=== PATIENT | female | born 1945 | race Hispanic/Latino ===

== ENCOUNTER 2017-06-15 08:46 | Outpatient (CLI) | payer MEDICARE, BC | END 2017-06-15 08:47 | disposition home or self-care (01) | LOC: BICMAMMO 08:46 | PROVIDERS: ATTEND Family Medicine | DX: Z12.31 Encounter for screening mammogram for malignant neoplasm of breast (principal); M81.0 Age-related osteoporosis without current pathological fracture | CPT/HCPCS: 77063; 77067; 77080 ==

== ENCOUNTER 2017-08-01 15:36 | Outpatient (CLI) | payer MEDICARE, BC | END 2017-08-01 15:37 | disposition home or self-care (01) | LOC: BICRAD 15:36 | PROVIDERS: ATTEND Family Medicine | DX: M25.562 Pain in left knee (principal); M25.561 Pain in right knee; M17.12 Unilateral primary osteoarthritis, left knee; M25.861 Other specified joint disorders, right knee ==

== ENCOUNTER 2017-08-20 15:19 | Outpatient (CLI) | payer MEDICARE, BC ==
[~2017-08-20 15:19] MED LIST: Gadobenate Dimeglumine 529 MG/1 ML (20ML VIAL) ONE
== END 2017-08-20 15:20 | disposition home or self-care (01) ==
LOC: BICMRI 15:19
PROVIDERS: ATTEND Orthopaedic Surgery Sports Medicine
DX: M25.561 Pain in right knee (principal); S83.231A Complex tear of medial meniscus, current injury, right knee, initial encounter; M93.961 Osteochondropathy, unspecified, right lower leg
CPT/HCPCS: A9579

== ENCOUNTER 2017-12-18 11:45 | Outpatient (CLI) | payer MEDICARE, BC | END 2017-12-18 11:46 | disposition home or self-care (01) | LOC: BICRAD 11:45 | PROVIDERS: ATTEND Family Medicine | DX: R60.0 Localized edema (principal); R93.8 Abnormal findings on diagnostic imaging of other specified body structures; I51.7 Cardiomegaly; Z92.89 Personal history of other medical treatment | CPT/HCPCS: 71046; 74018 ==

== ENCOUNTER 2018-06-19 11:44 | Outpatient (CLI) | payer MEDICARE, BC ==
--- NOTE | 2018-06-19 13:18 | RAD ---
CHEST TWO VIEWS: HISTORY: J18.9, pneumonia. COMPARISON: 12/18/2017 FINDINGS: Stable appearing mild cardiomegaly with increased linear and interstitial markings bilaterally and mi nimal pleural thickening, evidence for stable chronic change. Extensive atherosclerosis of the aorta with ectasia. No confluent lobar pneumonia. No significant pleural effusion. IMPRESSION: Stable appearing chronic lung changes with stable minimal cardiomegaly and extensive atherosclerotic ectatic changes of the aorta. POS: C
== END 2018-06-19 11:45 | disposition home or self-care (01) ==
LOC: BICRAD 11:44
PROVIDERS: ATTEND Family Medicine
DX: J18.9 Pneumonia, unspecified organism (principal); I51.7 Cardiomegaly; J98.4 Other disorders of lung; I77.810 Thoracic aortic ectasia
CPT/HCPCS: 71046

== ENCOUNTER 2018-06-27 12:53 | Outpatient (CLI) | payer MEDICARE, BC ==
--- NOTE | 2018-06-27 14:42 | BD ---
DEXA Bone Density History: Post-menopausal. Lumbar Spine: BMD (g/cm2) L1 0.820 T-Score: -1.5 L2 0.829 T-Score: -1.8 L3 0.728 T-Score: -3.2 L4 0.793 T-Score: -2.4 L1-L4 0.788 T-Score: -2.4 Femoral Neck: 0.565 T-Score: -2.6 Total Femur: 0.931 T-Score: -0.1 Impression: Osteoporosis of the left femoral neck. Osteopenia of the lumbar spine. POS: [facility]
== END 2018-06-27 12:54 | disposition home or self-care (01) ==
LOC: BICMAMMO 12:53
PROVIDERS: ATTEND Family Medicine
DX: Z12.31 Encounter for screening mammogram for malignant neoplasm of breast (principal); M85.9 Disorder of bone density and structure, unspecified; M81.0 Age-related osteoporosis without current pathological fracture; M85.88 Other specified disorders of bone density and structure, other site
CPT/HCPCS: 77063; 77067; 77080

== ENCOUNTER 2018-07-24 09:11 | Outpatient (CLI) | payer MEDICARE, BC ==
[2018-07-24 10:15] LABS: Estimated GFR-MDRD - POC Greater than 90
[2018-07-24] MEDS ORDERED: Gadobenate Dimeglumine 529 MG/1 ML (20ML VIAL) ONE (10:26)
--- NOTE | 2018-07-24 12:25 | MRI ---
MRI RIGHT KNEE WITH AND WITHOUT CONTRAST: Date: 07/24/18 HISTORY: Mass. COMPARISON: Prior radiograph, as well as MRI knee, dated 08/20/17. FINDINGS: There is a chondroid mass of the distal femoral and medial femoral condyle crossing the physeal plate . This measures 1.4 cm AP x 1.2 cm transverse x a craniocaudad length of 2.5 cm. This has not signifi cantly grown from the comparison examination. There is a cortical breakthrough anteriorly with the co rtical defect measuring 9.0 mm in AP dimension, unchanged from 2018. There is a moderate sized joint effusion which has increased from the comparison examination. The enh ancement of the synovium is markedly increased from the comparison examination. Medial Meniscus: There is a displaced flap tear of the posterior root attachment medial meniscus with the root attachm ent tissue flipped upon the posterior horn. Tear extends into the medial meniscal body with maceratio n of the free edge. Lateral Meniscus: There is a discoid lateral meniscus. ACL and PCL are intact. There is chronic thickening of the MCL. LCL is intact. Extensor Mechanism: Quadriceps tendon, patella, and patellar tendon are intact. Cartilage: Patellofemoral compartment: Multifocal high grade cartilage fissuring of patellar apex. Mild trochle ar dysplasia. Medial compartment; High grade chondromalacia with chondral delamination on the weightbearing surfac e of medial femoral condyle and medial tibial plateau. Reactive marrow changes of the medial femoral condyle and medial tibial plateau. Lateral compartment: Intact. IMPRESSION: 1. Unchanged size of the cartilaginous tumor of the anterior margin of medial femoral condyle crossi ng the physeal scar with anterior cortical breakthrough. 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 2. Marked interval size increase of the effusion of the knee joint. 3. Progressive tearing and maceration of the medial meniscus with loss of hoop stress and subsequent Grade IV chondromalacia. 4. Discoid lateral meniscus. POS: [facility]
== END 2018-07-24 09:12 | disposition home or self-care (01) ==
LOC: BICMRI 09:11
PROVIDERS: ATTEND Orthopaedic Surgery
DX: D16.21 Benign neoplasm of long bones of right lower limb (principal); M25.461 Effusion, right knee; M23.300 Other meniscus derangements, unspecified lateral meniscus, right knee; D49.2 Neoplasm of unspecified behavior of bone, soft tissue, and skin; M94.261 Chondromalacia, right knee
CPT/HCPCS: 82565; A9577

== ENCOUNTER 2018-11-14 14:26 | Outpatient (CLI) | payer MEDICARE, BC ==
--- NOTE | 2018-11-14 15:54 | RAD ---
LEFT FOOT THREE VIEWS: 11/14/18 HISTORY: Left foot pain, heel pain. FINDINGS/IMPRESSION: No fracture, dislocation or bony destruction seen. There are small plantar and posterior calcaneal sp urs. POS: OFF
== END 2018-11-14 14:27 | disposition home or self-care (01) ==
LOC: BICRAD 14:26
PROVIDERS: ATTEND Family Medicine
DX: M79.672 Pain in left foot (principal); M77.32 Calcaneal spur, left foot; M77.52 Other enthesopathy of left foot and ankle

== ENCOUNTER 2019-06-30 08:48 | Outpatient (CLI) | payer MEDICARE, BC ==
--- NOTE | 2019-07-03 13:28 | MMO ---
Bilateral MAMMO Bilat Screen [facility]. CLINICAL HISTORY: Patient is 73 years old and is seen for screening. The patient has no family history of breast cancer. The patient has no personal history of cancer. VIEWS: The views performed were: bilateral craniocaudal with tomosynthesis and bilateral mediolateral oblique with tomosynthesis. FILMS COMPARED: The present examination has been compared to prior imaging studies performed at [facility] on 06/02/2015, 06/05/2016, 06/15/2017 and 06/27/2018. This study has been interpreted with the assistance of computer-aided detection. MAMMOGRAM FINDINGS: There are no suspicious masses, suspicious calcifications, or new areas of architectural distortion. IMPRESSION: THERE IS NO MAMMOGRAPHIC EVIDENCE OF MALIGNANCY. A ROUTINE FOLLOW-UP MAMMOGRAM IN 1 YEAR IS RECOMMENDED. THE RESULTS OF THIS EXAM WERE SENT TO THE PATIENT. ACR BI-RADS Category 1 - Negative MAMMOGRAPHY NOTE: 1. A negative mammogram report should not delay a biopsy if a dominant of clinically suspicious mass is present. 2. Approximately 10% to 15% of breast cancers are not detected by mammography. 3. Adenosis and dense breasts may obscure an underlying neoplasm. Reported by: JUSTINO LOCK MD Electonically Signed: [id number]
== END 2019-06-30 08:49 | disposition home or self-care (01) ==
LOC: BICMAMMO 08:48
PROVIDERS: ATTEND Family Medicine
DX: Z12.31 Encounter for screening mammogram for malignant neoplasm of breast (principal)
CPT/HCPCS: 77063; 77067

== ENCOUNTER 2020-02-05 12:09 | Outpatient (CLI) | payer MEDICARE, BC ==
--- NOTE | 2020-02-05 12:57 | RAD ---
EXAM: Single view of the abdomen HISTORY: Hematuria that is intermittent for a few months COMPARISON: None FINDINGS: Single view of the abdomen shows a nonspecific, nonobstructive bowel gas pattern. No suspi cious calcifications are seen. The bones are unremarkable. IMPRESSION: Unremarkable exam
--- NOTE | 2020-02-05 12:58 | RAD ---
XR Chest Pa Lat STANDARD HISTORY: Cardiomegaly COMPARISON: 06/19/2018 FINDINGS: The heart is enlarged. There is mild pulmonary vascular congestion versus stable chronic ch anges.. No lobar consolidation, pneumothoraces or large effusions are seen. The aorta is tortuous. There are degenerative changes in the spine. IMPRESSION: No radiographic evidence of acute cardiopulmonary process.
--- NOTE | 2020-02-05 13:04 | ULT ---
US Renal Bilateral STANDARD History: Renal mass Comparison: None. Findings: Real-time grayscale and color evaluation of the kidneys and urinary bladder was performed. Right kidney measures 10 x 4.5 x 4.7 cm with a lateral cortical interpolar mass which is approximatel y 50% exophytic measuring 4.1 x 4 x 3.5 cm. This mass is solid without significant cystic component. The left kidney measures 10 x 5.4 x 4.7 cm with multiple punctate calyceal echogenic foci. No signifi cant hydronephrosis. No left-sided renal mass. Urinary bladder is unremarkable. Impression: 1. Large right lateral cortical exophytic interpolar mass measuring up to 4.1 cm in size. Malignancy is the diagnosis of exclusion. 2. Nonobstructing punctate left-sided renal calculi.
== END 2020-02-05 12:10 | disposition home or self-care (01) ==
LOC: BICRAD 12:09
PROVIDERS: ATTEND Family Medicine
DX: N23 Unspecified renal colic (principal); I51.7 Cardiomegaly; R31.9 Hematuria, unspecified; N20.0 Calculus of kidney; N28.89 Other specified disorders of kidney and ureter
CPT/HCPCS: 71046; 74018; 76770

== ENCOUNTER 2020-03-16 12:38 | Outpatient (CLI) | payer MEDICARE, BC ==
[2020-03-16 13:23] LABS: Estimated GFR-MDRD - POC Greater than 90
--- NOTE | 2020-03-16 14:53 | CT ---
CT ABDOMEN AND PELVIS WITH AND WITHOUT IV CONTRAST 03/16/20 HISTORY: Right renal mass, hematuria. Renal calculi. Bilateral flank pain, right worse than left. FINDINGS: Correlation is made with a renal ultrasound of 02/05/20. There is a 4 cm interpolar exophytic mass arising from the right kidney with attenuation values of 63 Hounsfield units on a noncontrasted images, 90 Hounsfield units on the initial postcontrast images a nd 69 Hounsfield units on the delayed images consistent with an enhancing mass. There is a 15 mm lesi on on the posterior cortex of the right kidney posterior to the interpolar mass which does not meet c riteria for a simple cyst. No calculi are seen in the kidneys, ureters or the urinary bladder. No hy droureteronephrosis seen on either side. There is normal contrast excretion of the kidneys and urete rs on the delayed images. A 1 cm low dense lesion was seen in the inferior pole of the left kidney, t oo small to characterize. There are dependent changes in the lung bases. No free air, free fluid or lymphadenopathy is seen in the abdomen or pelvis. There is fatty infiltration of the liver without hepatic mass or abnormal bili alisson ductal dilatation. No calcified gallstones are seen. The spleen, pancreas, and adrenal glands are normal. There are vascular calcifications without evidence of aneurysmal dilatation of the abdominal aorta. T here are degenerative changes in the spine. No osteolytic or osteoblastic lesions are noted. The small bowel loops are not abnormally dilated. A normal appearing appendix is present. There is co lonic diverticulosis. The uterus is present. IMPRESSION: 1. 4 cm right renal mass is suspicious for malignancy. 2. Indeterminate 15 mm and 10 mm lesions in the right and left kidney respectively. 3. No CT evidence of urinary tract calculi or obstruction. 4. Fatty liver. 5. Colonic diverticulosis. POS: AH
== END 2020-03-16 12:39 | disposition home or self-care (01) ==
LOC: BICCT 12:38
PROVIDERS: ATTEND Urology
DX: R31.9 Hematuria, unspecified (principal); N28.89 Other specified disorders of kidney and ureter; N20.0 Calculus of kidney; K57.30 Diverticulosis of large intestine without perforation or abscess without bleeding; K76.0 Fatty (change of) liver, not elsewhere classified
CPT/HCPCS: 74178; 82565

== ENCOUNTER 2020-04-09 10:12 | Outpatient (CLI) | payer MEDICARE, BC ==
[2020-04-09 10:38] LABS: Estimated GFR-MDRD - POC Greater than 90
--- NOTE | 2020-04-09 11:44 | CT ---
CT THORAX WITH CONTRAST: DATE: 04/09/2020 HISTORY: 74-year-old female with right renal tumor. Evaluate for pulmonary metastatic disease. COMPARISON: none FINDINGS: There is an approximately 4.5 x 4.4 x 4.1 cm partially exophytic solid enhancing tumor mass protrudin g laterally from the anterior right renal midpole. It indents the posterior surface of the right lobe of liver without invading it. The rest of the visualized portions of the liver, spleen, pancreas, and adrenals, are normal. Descending thoracic aorta is tortuous but not aneurysmal. Lungs are essentially clear, with no suspicious pulmonary nodules, consolidation, high-grade emphysem atous changes, or pulmonary edema. No pleural effusion or pneumothorax. No mediastinal or hilar lymphadenopathy. No pericardial effusion. No definite osteolytic skeletal lesions identified. Multilevel moderate to severe degenerative disc disease at mid and lower thoracic spine. 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 2) no evidence of intrathoracic metastatic disease.
--- NOTE | 2020-04-09 14:16 | NM ---
NUCLEAR MEDICINE BONE SCAN WHOLE BODY: (Skeletal scintigraphy) DATE: 04/09/2020 HISTORY: 74-year-old female with right renal cancer TECHNIQUE: IV injection of technetium 99m-MDP: 31.6 mCi 3 hour delayed whole body skeletal scintigraphy in anterior and posterior views. FINDINGS: There is bilaterally increased uptake of radiopharmaceutical in the major joints and the spine, consi stent with degenerative changes. Otherwise, there are no foci of asymmetrically increased uptake that are particularly suspicious for bone metastases. IMPRESSION: 1. Osteoarthrosis and spondylosis. 2. No compelling evidence of skeletal metastasis.
[2020-04-09] MEDS ORDERED: Iopamidol 370 76% 100 ML VIAL ONE (15:12)
== END 2020-04-09 10:13 | disposition home or self-care (01) ==
LOC: CT 10:12
PROVIDERS: ATTEND Urology
DX: N28.89 Other specified disorders of kidney and ureter (principal); D49.511 Neoplasm of unspecified behavior of right kidney; M19.90 Unspecified osteoarthritis, unspecified site; M47.819 Spondylosis without myelopathy or radiculopathy, site unspecified
CPT/HCPCS: 71260; 78306; 82565; A9503; Q9967

== ENCOUNTER 2020-06-07 12:39 | Outpatient (CLI) | payer MEDICARE, BC ==
[~2020-06-07 12:39] MED LIST changes: -Gadobenate Dimeglumine 529 MG/1 ML (20ML VIAL) ONE; +Iopamidol 370 76% 100 ML VIAL ONE
[2020-06-07 13:10] LABS: Estimated GFR-MDRD - POC Greater than 90
--- NOTE | 2020-06-07 16:03 | CT ---
CT ABDOMEN WITH AND WITHOUT IV CONTRAST 06/07/2020 CLINICAL INFORMATION: Follow-up renal mass. COMPARISON: 03/16/2020 Technique: Multiple contiguous axial CT images are obtained through the abdomen and pelvis with IV contrast. Cor onal reformatted images are provided. FINDINGS: Lower Chest: Mild atelectasis. Vessels: Scattered vascular calcifications in the abdominal aorta and iliac arteries. Abdomen: Portal vein:Patent Gallbladder: Tiny calculus gallbladder lumen. Liver: within normal limits. Spleen: within normal limits. Pancreas: within normal limits. Adrenals: within normal limits. Kidneys: Previously described increased density exophytic mass junction midportion and superior pole right kidney is again seen which again demonstrates subtle enhancement.. Measurement are overall similar to prior exam with this lesion measuring 4.3 cm x 3.6 cm. No adjacent neovascularity is prese nt. There is suggestion of a contour abnormality involving the right renal shadow on a 1 view abdomen on 12/18/2017 which may account for the mass seen in the right kidney on CT examination. Given subtle enhancement, neoplastic process is suggested. In the posterior aspect midportion right kidney is a 1.3 cm increased density lesion likely due to hy perdense renal cyst there does not appear to be appreciable enhancement. 1.2 cm hypodense lesion inferior pole left kidney is seen attenuation coefficients on today's examination most suggestive of a small cyst. No renal calculi or hydronephrosis is present. Bowel: Evidence of colonic diverticulosis. Appendix: The appendix is visualized and normal in caliber. Peritoneum: No ascites or free air; no fluid collection. Mesentery and Retroperitoneum: No enlarged mesenteric or retroperitoneal lymph nodes. Abdominal Wall: within normal limits. Bones: No suspicious lytic or sclerotic osseous lesions are identified. Degenerative changes are pres ent in the spine. IMPRESSION: 1. Stable slightly enhancing right renal mass again suspicious for neoplasm. A contour abnormality of the right kidney was seen on a 1 view abdomen on 12/18/2017 which likely accounts for the right renal lesion on that exam. No neovascularity is seen surrounding or involving the right renal mass. 2. Hyperdense cyst midportion right kidney with inferior pole left renal cyst. 3. Colonic diverticulosis.
== END 2020-06-07 12:40 | disposition home or self-care (01) ==
LOC: BICCT 12:39
PROVIDERS: ATTEND Urology
DX: N28.89 Other specified disorders of kidney and ureter (principal); N28.1 Cyst of kidney, acquired; K57.30 Diverticulosis of large intestine without perforation or abscess without bleeding; E11.9 Type 2 diabetes mellitus without complications; R31.9 Hematuria, unspecified
CPT/HCPCS: 36415; 74170; 80053; 81001; 82565; 87086; Q9967

== ENCOUNTER 2020-07-02 08:50 | Outpatient (CLI) | payer MEDICARE, BC | END 2020-07-02 08:51 | disposition home or self-care (01) | LOC: BICMAMMO 08:50 | PROVIDERS: ATTEND Family Medicine | DX: Z12.31 Encounter for screening mammogram for malignant neoplasm of breast (principal) | CPT/HCPCS: 77063; 77067 ==

== ENCOUNTER 2020-07-14 11:30 | Inpatient (IN) | payer MEDICARE, BC ==
[2020-07-29 11:29] VITALS: BMI 26.2
[2020-07-29 12:08] LABS: Bilirubin Neg (Negative); Blood, Urine 10 (Negative); Glucose, Urine (Dipstick) Normal (Negative); Ketone, Urine Negative (Negative); Leukocyte Negative (Negative); Nitrite Negative (Negative); Protein, Urine (Dipstick) Negative (Neg-Trace); Specific Gravity, Urine 1.015 (1.002-1.036); Urobilinogen Normal mg/dL (Less than 2)
[2020-07-29 12:10] LABS: Clarity Cloudy (Clear)
[2020-07-29 12:12] LABS: Hemoglobin 14.2 g/dL (12.0-15.5); Mean Corpuscular HGB CONC 31.7 g/dL (32.0-36.0); Mean Corpuscular Hemoglobin 29.1 pg (27.0-33.0); Mean Corpuscular Volume 91.8 fl (81.6-98.3); Mean Platelet Volume 10.9 fl (7.4-10.4); Platelet Count 345 10x3/uL (150-450); RBC Distribution Width 13.2 % (11.5-14.5); Red Blood Cell (RBC) Count 4.88 10x6/uL (3.90-5.03); White Blood Cell (WBC) Count 9.6 10x3/uL (3.5-10.5)
[2020-07-29 12:25] LABS: Bacteria/HPF None Seen HPF (None Seen); RBC/HPF None Seen HPF (0-3); Squamous Epithelial None Seen HPF (0-3); WBC/HPF None Seen HPF (0-3)
[2020-07-29 12:28] LABS: Anion Gap 13 mmol/L (10-20); BUN (Urea Nitrogen) 18 mg/dL (9.8-20.1); Calc. Creatinine Clearance 0 mL/min (70-130); Calcium 10.1 mg/dL (7.8-10.44); Carbon Dioxide 28 mmol/L (23-31); Chloride 104 mmol/L (98-107); Glucose 101 mg/dL (83-110); Potassium 4.2 mmol/L (3.5-5.1); Sodium 141 mmol/L (136-145)
[2020-07-29 12:37] LABS: Prothrombin Time 10.7 sec (9.5-12.1)
[2020-07-29 18:22] LABS: SARS-CoV-2 PCR by NAA Not Detected (NotDetected)
[2020-08-02] MEDS ORDERED: Levofloxacin 500 mg/D5W 100 ml Premix Bag ONE (06:28)
[2020-08-02] MEDS ORDERED: Lidocaine 1% w/Epinephrine 1:100K 20 ML VIAL ONE (06:37)
[2020-08-02] MEDS ORDERED: Bupivacaine 0.25% HCL 30 ML VIAL ONE ×3 (06:37→08:10)
[2020-08-02] MEDS ORDERED: Fentanyl 250 MCG/5 ML VIAL ONE (06:53)
[2020-08-02] MEDS ORDERED: Midazolam HCl 2 mg/2 ml Vial ONE (07:56)
[2020-08-02] MEDS ORDERED: Fentanyl 100 MCG/2 ML VIAL ONE ×2 (07:56→12:49)
[2020-08-02] MEDS ORDERED: HYDROcodone/Acetaminophen 5/325 mg Tablet PO PRN ×4 (08:00→13:00)
[2020-08-02] MEDS ORDERED: traMADol HCl 50 MG TAB PO PRN ×4 (08:00→13:00)
[2020-08-02] MEDS ORDERED: Bupivacaine 0.25% 10 ML VIAL EPIDURAL PRN ×2 (08:00→13:00)
[2020-08-02] MEDS ORDERED: diphenhydrAMINE 25 MG CAP PO PRN ×2 (08:00→13:00)
[2020-08-02] MEDS ORDERED: diphenhydrAMINE 50 MG/ML VIAL IVP PRN ×2 (08:00→13:00)
[2020-08-02] MEDS ORDERED: Hydrocerin (Eucerin) Cream 120 gm Jar TOP PRN ×2 (08:00→13:00)
[2020-08-02] MEDS ORDERED: Zolpidem Tartrate 5 MG TAB PO PRN ×3 (08:00→13:00)
[2020-08-02] MEDS ORDERED: Naloxone HCl 0.4 mg/ml Vial IVP PRN ×2 (08:00→13:00)
[2020-08-02] MEDS ORDERED: diphenhydrAMINE 50 MG/ML VIAL IM PRN ×2 (08:00→13:00)
[2020-08-02] MEDS ORDERED: Promethazine HCl 25 MG/ML VIAL IM PRN ×2 (08:00→13:00)
[2020-08-02] MEDS ORDERED: Ondansetron PF 4 MG/2 ML Vial IVP PRN ×2 (08:00→13:00)
[2020-08-02] MEDS ORDERED: Fentanyl 5 mcg/Bup 0.075% Cadd 100 ML EPIDURAL SCH (08:00)
[2020-08-02] MEDS ORDERED: Promethazine HCl 25 MG SUPP PR PRN ×2 (08:00→13:00)
[2020-08-02] MEDS ORDERED: Naloxone HCl 0.4 mg/ml Vial IV PRN ×2 (08:00→13:00)
[2020-08-02] MEDS ORDERED: Lidocaine 1.5% w/Epi 1:200K 30 ML VIAL (Epid Use) ONE (08:10)
[2020-08-02] MEDS ORDERED: Glycopyrrolate 0.2 MG/ML 5 ML SYRINGE ONE (08:10)
[2020-08-02] MEDS ORDERED: PROPOFOL 200 MG/20 ML VIAL ONE (08:10)
[2020-08-02] MEDS ORDERED: Ondansetron PF 4 MG/2 ML Vial ONE (08:10)
[2020-08-02] MEDS ORDERED: Lidocaine 1% PF 5 ML VIAL ONE (08:10)
[2020-08-02] MEDS ORDERED: Rocuronium Bromide 10 MG/ML (10ML VIAL) ONE (08:10)
[2020-08-02] MEDS ORDERED: Dexamethasone 20 MG/5 ML VIAL ONE (08:10)
[2020-08-02] MEDS ORDERED: hydrALAZINE 20 MG/ML VIAL SLOW IVP PRN ×2 (12:30)
[2020-08-02] MEDS ORDERED: Insulin Regular 300 UNITS/3 ML VIAL SC PRN (12:30)
[2020-08-02] MEDS ORDERED: Dextrose 5% in Water 1,000 ML IV PRN (12:30)
[2020-08-02] MEDS ORDERED: Mag-Al 1200 mg/1200 mg/30 ML UDCUP PO PRN (12:30)
[2020-08-02] MEDS ORDERED: Dextrose 50% Abboject 50 ML SYRINGE SLOW IVP PRN (12:30)
[2020-08-02] MEDS ORDERED: Gabapentin 100 MG CAP PO PRN (12:34)
[2020-08-02] MEDS ORDERED: Alendronate Sodium 70 mg Tablet PO SCH (12:45)
[2020-08-02 13:38] LABS: Hemoglobin 12.5 g/dL (12.0-16.0); Mean Corpuscular HGB CONC 32.6 g/dL (32.0-36.0); Mean Corpuscular Hemoglobin 30.4 pg (27.0-31.0); Mean Corpuscular Volume 93.3 fL (78.0-98.0); Mean Platelet Volume 8.4 fL (7.4-10.4); Platelet Count 270 thou/uL (130-400); Red Blood Cell (RBC) Count 4.12 mill/uL (4.20-5.40)
[2020-08-02 13:55] LABS: Band 34 % (5-11); Lymphocytes 3 % (21-51); MDiff Complete? YES; Monocytes 2 % (0-10); Neutrophil 60 % (42-75); Platelet Morphology Comment Appears Adequate; RBC Morphology Normal; Reactive Lymphocytes 1 % (0-10)
[2020-08-02 13:59] LABS: Anion Gap 13 mmol/L (10-20); BUN (Urea Nitrogen) 16 mg/dL (9.8-20.1); Calc. Creatinine Clearance 59 mL/min (70-130); Calcium 7.9 mg/dL (7.8-10.44); Carbon Dioxide 22 mmol/L (23-31); Chloride 109 mmol/L (98-107); Glucose 176 mg/dL (83-110); Potassium 3.7 mmol/L (3.5-5.1); Sodium 140 mmol/L (136-145)
[2020-08-02] MEDS ORDERED: Acetaminophen 500 MG TAB PO PRN (15:40)
[2020-08-02] MEDS: Sodium Chloride 0.9% 1,000 ML IV SCH ×2 (16:51→20:10)
[2020-08-02] MEDS: Docusate 100 MG CAP PO SCH (20:10)
[2020-08-02] MEDS: Atorvastatin Calcium 10 MG TAB PO SCH (20:10)
[2020-08-03] MEDS: Fentanyl 5 mcg/Bup 0.075% Cadd 100 ML EPIDURAL SCH ×2 (02:46→14:54)
[2020-08-03 05:57] LABS: #Lymphocytes 1.9 thou/uL (1.20-3.40); #Monocytes 1.6 thou/uL (0.11-0.59); #Neutrophils 10.2 thou/uL (1.40-6.50); %Basophils 0.1 % (0.0-1.0); %Eosinophils 0.1 % (0.0-10.0); %Lymphocytes 13.8 % (21.0-51.0); %Monocytes 11.8 % (0.0-10.0); %Neutrophils 74.2 % (42.0-75.0); Hemoglobin 11.3 g/dL (12.0-16.0); Mean Corpuscular Hemoglobin 30.8 pg (27.0-31.0); Mean Corpuscular Volume 93.3 fL (78.0-98.0); Mean Platelet Volume 8.7 fL (7.4-10.4); Platelet Count 238 thou/uL (130-400); RBC Distribution Width 12.1 % (11.5-14.5); Red Blood Cell (RBC) Count 3.66 mill/uL (4.20-5.40); White Blood Cell (WBC) Count 13.7 thou/uL (4.8-10.8)
[2020-08-03 06:07] LABS: Anion Gap 11 mmol/L (10-20); BUN (Urea Nitrogen) 15 mg/dL (9.8-20.1); Calc. Creatinine Clearance 50 mL/min (70-130); Calcium 7.4 mg/dL (7.8-10.44); Carbon Dioxide 21 mmol/L (23-31); Chloride 109 mmol/L (98-107); Glucose 121 mg/dL (83-110); Sodium 137 mmol/L (136-145)
[2020-08-03] MEDS: metFORMIN 500 MG TAB PO SCH (08:17)
[2020-08-03] MEDS: Docusate 100 MG CAP PO SCH ×2 (08:17→20:05)
[2020-08-03] MEDS: Amlodipine 5 mg/Benazepril 20 mg CAP PO SCH (08:53)
[2020-08-03] MEDS ORDERED: cefTRIAXone\\ROCEPHIN 1 GM in Sodium Chloride 0.9% 100 ML IVPB SCH (13:00)
[2020-08-03 15:18] LABS: Hemoglobin 12.4 g/dL (12.0-16.0)
[2020-08-03] MEDS: Atorvastatin Calcium 10 MG TAB PO SCH (20:05)
[2020-08-04 05:58] LABS: #Basophils 0.1 thou/uL (0.0-0.2); #Eosinphils 0.1 thou/uL (0.0-0.7); #Lymphocytes 2.4 thou/uL (1.20-3.40); #Monocytes 1.4 thou/uL (0.11-0.59); #Neutrophils 8.6 thou/uL (1.40-6.50); %Basophils 0.6 % (0.0-1.0); %Eosinophils 0.9 % (0.0-10.0); %Monocytes 11.4 % (0.0-10.0); %Neutrophils 68.2 % (42.0-75.0); Hemoglobin 10.8 g/dL (12.0-16.0); Mean Corpuscular HGB CONC 33.2 g/dL (32.0-36.0); Mean Corpuscular Volume 93.5 fL (78.0-98.0); Mean Platelet Volume 8.5 fL (7.4-10.4); Platelet Count 222 thou/uL (130-400); RBC Distribution Width 12.2 % (11.5-14.5); Red Blood Cell (RBC) Count 3.48 mill/uL (4.20-5.40); White Blood Cell (WBC) Count 12.6 thou/uL (4.8-10.8)
[2020-08-04 06:14] LABS: Anion Gap 11 mmol/L (10-20); BUN (Urea Nitrogen) 14 mg/dL (9.8-20.1); Calc. Creatinine Clearance 57 mL/min (70-130); Calcium 7.5 mg/dL (7.8-10.44); Carbon Dioxide 23 mmol/L (23-31); Chloride 107 mmol/L (98-107); Glucose 107 mg/dL (83-110); Potassium 3.7 mmol/L (3.5-5.1); Sodium 137 mmol/L (136-145)
[2020-08-04] MEDS ORDERED: Bisacodyl 10 MG SUPP PR PRN (07:12)
[2020-08-04] MEDS ORDERED: Bisacodyl 10 MG SUPP PR SCH (07:30)
[2020-08-04] MEDS: metFORMIN 500 MG TAB PO SCH (08:06)
[2020-08-04] MEDS: Amlodipine 5 mg/Benazepril 20 mg CAP PO SCH (08:06)
[2020-08-04] MEDS: Docusate 100 MG CAP PO SCH (08:06)
[2020-08-04] MEDS ORDERED: Lisinopril 10 MG TAB PO SCH (09:00)
[2020-08-04] MEDS ORDERED: Amlodipine 5 MG TAB PO SCH (09:00)
[2020-08-04 14:28] LABS: Hemoglobin 12.1 g/dL (12.0-16.0)
[2020-08-04 16:25] VITALS: BP 103/63; TEMP 98.7
== END 2020-08-04 17:18 | disposition home or self-care (01) | DRG 658 ==
LOC: SURG A 08-02 06:08 → SJJU 08-02 15:11
PROVIDERS: ADMIT Urology; ATTEND Urology
PROC: 0TT04ZZ Resection of Right Kidney, Percutaneous Endoscopic Approach (ICD-10-PCS; principal; 2020-08-02)
PROC: 8E0W4CZ Robotic Assisted Procedure of Trunk Region, Percutaneous Endoscopic Approach (ICD-10-PCS; 2020-08-02)
DX: C64.1 Malignant neoplasm of right kidney, except renal pelvis (principal); E11.9 Type 2 diabetes mellitus without complications; I10 Essential (primary) hypertension; F41.9 Anxiety disorder, unspecified; N28.1 Cyst of kidney, acquired; Z20.822 Contact with and (suspected) exposure to COVID-19
CPT/HCPCS: 36415; 36416; 71045; 80048; 81001; 85025; 85027; 85610; 85730; 86850; 86900; 86901; 87086; 87635; 88307; 88313; J0690; J0696; J1100; J1956; J2001; J2250; J2405; J2704; J3010; J3490; Q0163; S0020; U0003; U0005

== ENCOUNTER 2020-07-29 10:21 | Outpatient (CLI) | payer MEDICARE, BC | END 2020-07-29 10:22 | disposition home or self-care (01) | LOC: LABBT 10:21 | PROVIDERS: ATTEND Urology | DX: Z01.818 Encounter for other preprocedural examination (principal); N28.89 Other specified disorders of kidney and ureter | CPT/HCPCS: 71046; 93005; 93010 ==

== ENCOUNTER 2020-10-28 13:19 | Outpatient (CLI) | payer MEDICARE, BC | END 2020-10-28 13:20 | disposition home or self-care (01) | LOC: BICRAD 13:19 | PROVIDERS: ATTEND Family Medicine | DX: R07.89 Other chest pain (principal); M81.0 Age-related osteoporosis without current pathological fracture; M47.814 Spondylosis without myelopathy or radiculopathy, thoracic region; I51.7 Cardiomegaly | CPT/HCPCS: 71046; 72072 ==

== ENCOUNTER 2020-12-21 08:57 | Outpatient (CLI) | payer MEDICARE, BC ==
[2020-12-21] MEDS ORDERED: Iopamidol 370 76% 100 ML VIAL ONE (16:19)
== END 2020-12-21 08:58 | disposition home or self-care (01) ==
LOC: BICCT 08:57
PROVIDERS: ATTEND Urology
DX: Z08 Encounter for follow-up examination after completed treatment for malignant neoplasm (principal); K80.20 Calculus of gallbladder without cholecystitis without obstruction; Z85.528 Personal history of other malignant neoplasm of kidney; Z90.5 Acquired absence of kidney
CPT/HCPCS: 74178; 82565; Q9967

== ENCOUNTER 2021-07-04 12:34 | Outpatient (CLI) | payer MEDICARE, BC | END 2021-07-04 12:35 | disposition home or self-care (01) | LOC: BICMAMMO 12:34 | PROVIDERS: ATTEND Family Medicine | DX: Z12.31 Encounter for screening mammogram for malignant neoplasm of breast (principal) | CPT/HCPCS: 77063; 77067 ==

== ENCOUNTER 2022-01-13 12:30 | Outpatient (CLI) | payer MEDICARE, BC | END 2022-01-13 12:31 | disposition home or self-care (01) | LOC: BICULT 12:30 | PROVIDERS: ATTEND Urology | DX: C64.9 Malignant neoplasm of unspecified kidney, except renal pelvis (principal); N28.1 Cyst of kidney, acquired; R31.29 Other microscopic hematuria | CPT/HCPCS: 71046; 76770 ==

== ENCOUNTER 2022-08-30 12:31 | Outpatient (CLI) | payer MEDICARE, BC | END 2022-08-30 12:32 | disposition home or self-care (01) | LOC: BICRAD 12:31 | PROVIDERS: ATTEND Family Medicine | DX: J45.909 Unspecified asthma, uncomplicated (principal) | CPT/HCPCS: 71046 ==

== ENCOUNTER 2023-01-02 09:39 | Outpatient (CLI) | payer MEDICARE, BC | END 2023-01-02 09:40 | disposition home or self-care (01) | LOC: BICULT 09:39 | PROVIDERS: ATTEND Urology | DX: C64.9 Malignant neoplasm of unspecified kidney, except renal pelvis (principal); N28.1 Cyst of kidney, acquired; R31.29 Other microscopic hematuria | CPT/HCPCS: 36415; 76770; 80053; 81001 ==

== ENCOUNTER 2023-01-02 10:06 | Outpatient (CLI) | payer MEDICARE, BC | END 2023-01-02 10:07 | disposition home or self-care (01) | LOC: RAD 10:06 | PROVIDERS: ATTEND Urology | DX: C64.9 Malignant neoplasm of unspecified kidney, except renal pelvis (principal); N28.1 Cyst of kidney, acquired; R31.29 Other microscopic hematuria | CPT/HCPCS: 36415; 71046; 76770; 80053; 81001 ==

== ENCOUNTER 2023-02-01 10:08 | Outpatient (CLI) | payer MEDICARE, BC | END 2023-02-01 10:09 | disposition home or self-care (01) | LOC: BICCT 10:08 | PROVIDERS: ATTEND Urology | DX: C64.9 Malignant neoplasm of unspecified kidney, except renal pelvis (principal); Z90.5 Acquired absence of kidney; K80.20 Calculus of gallbladder without cholecystitis without obstruction | CPT/HCPCS: 74176 ==

== ENCOUNTER 2024-01-08 15:44 | Outpatient (CLI) | payer MEDICARE | END 2024-01-08 15:45 | disposition home or self-care (01) | LOC: BICULT 15:44 | PROVIDERS: ATTEND Urology | DX: C64.9 Malignant neoplasm of unspecified kidney, except renal pelvis (principal); N28.1 Cyst of kidney, acquired; R31.29 Other microscopic hematuria; N28.89 Other specified disorders of kidney and ureter; R93.422 Abnormal radiologic findings on diagnostic imaging of left kidney; Z90.5 Acquired absence of kidney | CPT/HCPCS: 76770 ==

== ENCOUNTER 2024-12-17 09:04 | Outpatient (CLI) | payer MEDICARE | END 2024-12-17 09:05 | disposition home or self-care (01) | LOC: ULT 09:04 | PROVIDERS: ATTEND Urology | DX: C64.9 Malignant neoplasm of unspecified kidney, except renal pelvis (principal); R31.29 Other microscopic hematuria; N28.1 Cyst of kidney, acquired; K80.20 Calculus of gallbladder without cholecystitis without obstruction; N94.89 Other specified conditions associated with female genital organs and menstrual cycle; Z98.890 Other specified postprocedural states; Z90.5 Acquired absence of kidney | CPT/HCPCS: 76775 ==

== ENCOUNTER 2025-01-13 09:37 | Outpatient (CLI) | payer MEDICARE | END 2025-01-13 09:38 | disposition home or self-care (01) | LOC: BICRAD 09:37 | PROVIDERS: ATTEND Urology | DX: C64.9 Malignant neoplasm of unspecified kidney, except renal pelvis (principal); J98.4 Other disorders of lung | CPT/HCPCS: 71046 ==